=== PATIENT | female | born 1960 | race Hispanic/Latino ===

== ENCOUNTER 2018-04-20 10:54 | Emergency (ER) | payer SELFPAY ==
[2018-04-20] MEDS ORDERED: Loperamide HCl 2 MG CAP ONE (11:14)
[2018-04-20] MEDS ORDERED: Dicyclomine 10 MG CAP ONE (11:14)
== END 2018-04-20 11:20 | disposition home or self-care (01) ==
LOC: MADERS 10:54
DX: R19.7 Diarrhea, unspecified (principal); Z79.899 Other long term (current) drug therapy
CPT/HCPCS: 99283

== ENCOUNTER 2019-04-17 15:45 | Outpatient (CLI) | payer SELFPAY ==
--- NOTE | 2019-04-17 15:59 | RAD ---
Exam: XR Foot Lt 3 View STANDARD HISTORY: Plantar fasciitis. COMPARISON: None FINDINGS: No acute fracture, dislocation, or other acute osseous abnormality is identified. IMPRESSION: No acute osseous abnormality is identified.
== END 2019-04-17 15:46 | disposition home or self-care (01) ==
LOC: MADRAD 15:45
PROVIDERS: ATTEND Family Medicine
DX: M72.9 Fibroblastic disorder, unspecified (principal)